=== PATIENT | male | born 1965 | race Caucasian/White ===

== ENCOUNTER 2020-10-11 10:00 | Emergency (ER) | payer MEDICARE ==
[2020-10-11] MEDS ORDERED: PREDNISONE20 M1 PO (11:58)
[2020-10-11 12:52] VITALS: BP 138/90
== END 2020-10-11 12:12 | disposition home or self-care (01) ==
LOC: ED 10:00
DX: M54.31 Sciatica, right side (principal); F17.200 Nicotine dependence, unspecified, uncomplicated
CPT/HCPCS: J1885; J2270; J2930